=== PATIENT | male | born 1965 | race Caucasian/White ===

== ENCOUNTER 2017-08-29 07:46 | Day surgery (SDC) | payer OTHER ==
[~2017-08-29 07:46] MED LIST: Benzocaine 20% Oral Spray 59.2 ML Canister ONE; Midazolam 1 MG/ML 2 ML SDV ONE; fentaNYL 100 MCG/2 ML SDV ONE
[2017-08-29] MEDS ORDERED: Midazolam 1 MG/ML 2 ML SDV IV ONE ×5 (07:47→08:44)
[2017-08-29] MEDS ORDERED: fentaNYL 100 MCG/2 ML SDV IV ONE ×3 (07:47→08:43)
[2017-08-29] MEDS ORDERED: Midazolam 1 MG/ML 2 ML SDV ONE ×2 (08:08→08:43)
[2017-08-29] MEDS ORDERED: Lactated Ringers 1,000 ML IV SCH (08:30)
[2017-08-29 13:21] VITALS: BP 137/86
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
== END 2017-08-29 10:55 | disposition home or self-care (01) ==
LOC: DL.ENDO 07:46
PROVIDERS: ATTEND Surgery
DX: B33.20 Viral carditis, unspecified (principal); K20.9 Esophagitis, unspecified; K44.9 Diaphragmatic hernia without obstruction or gangrene
CPT/HCPCS: 43239; 87077; J2250; J3010; J7120

== ENCOUNTER 2018-07-01 09:09 | Emergency (ER) | payer OTHER ==
[2018-07-01 09:20] VITALS: BP 157/86
[2018-07-01] MEDS ORDERED: Diphtheria,Pertussis(Acell),Tetanus Vaccine 0.5 ML SDV IM ONE (09:29)
[2018-07-01] MEDS ORDERED: Clindamycin HCl 150 MG Cap PO ONE (09:29)
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
== END 2018-07-01 10:08 | disposition home or self-care (01) ==
LOC: DL.ED 09:09
DX: S01.511A Laceration without foreign body of lip, initial encounter (principal); S00.83XA Contusion of other part of head, initial encounter; F17.210 Nicotine dependence, cigarettes, uncomplicated; Z23 Encounter for immunization; Z79.82 Long term (current) use of aspirin; Z79.899 Other long term (current) drug therapy; X99.9XXA Assault by unspecified sharp object, initial encounter
CPT/HCPCS: 12011; 90471; 90715; 99282; A9270; 40830

== ENCOUNTER 2018-12-07 08:14 | Emergency (ER) | payer OTHER ==
[2018-12-07] MEDS ORDERED: Sodium Chloride 0.9% 10 ML Syringe FLUSH PRN (11:10)
[2018-12-07] MEDS ORDERED: Lactated Ringers 1,000 ML IV ONE (11:11)
[2018-12-07] MEDS ORDERED: HYDROmorphone 1 MG/ML Syringe IVPUSH ONE (11:11)
[2018-12-07] MEDS ORDERED: diphenhydrAMINE 50 MG/ML SDV IVPUSH ONE (11:11)
[2018-12-07] MEDS ORDERED: Ondansetron 4 MG/2 ML SDV IV ONE (11:11)
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
[2018-12-07] MEDS ORDERED: Iopamidol 612 MG/ML 100 ML Bottle IVPUSH ONE (11:34)
[2018-12-07 11:35] LABS: ANION GAP 17.9; CHLORIDE,CL 98 mmol/L (101-111); SODIUM,NA 134 mmol/L (135-145)
--- NOTE | 2018-12-07 11:35 | CR ---
Clinical history: 53-year-old male chest pain and shortness of breath. Interpretation: Patchy atelectasis lung bases consistent with less than optimal inspiratory effort. Normal cardiac silhouette and no new cephalization of flow, signs of alveolar edema or dependent pleural fluid accumulation (pleural effusions) when compared to 24 February 2016 exam. No new lung mass, hilar lymphadenopathy or focal lobar pneumonia. No air trapping or pneumothorax.
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
[2018-12-07 13:08] VITALS: BP 122/71
== END 2018-12-07 14:07 | disposition home or self-care (01) ==
LOC: DL.ED 08:14
DX: K52.9 Noninfective gastroenteritis and colitis, unspecified (principal); E86.0 Dehydration; K21.9 Gastro-esophageal reflux disease without esophagitis; Z79.82 Long term (current) use of aspirin; Z79.899 Other long term (current) drug therapy
CPT/HCPCS: 36415; 71046; 74177; 80053; 81001; 83605; 84484; 85025; 86140; 87040; 93005; 96361; 96374; 96375; 99285; J1170; J1200; J2405; J7120; Q9967